=== PATIENT | female | born 1935 | race Caucasian/White ===

== ENCOUNTER 2018-10-12 08:37 | Emergency (ER) | payer MEDICARE, OTHER ==
[~2018-10-12] VITALS: Ht 170.2 cm; Wt 68.2 kg
[~2018-10-12 08:37] MED LIST: ASPIRIN EC81 MG PO; CARTIA XT180 MG/24 PO; CIPRO500 MG PO; FLAGYL500 MG PO; HYDROCHLORO25 MG/TAB PO; HYDROCHLOROT25 MG PO; ISORDIL20 MG OR; ISOSORB MONO30 MG PO; METOPROL TAR100 M1 PO; METOPROL TAR25 MG PO; PLAVIX75 MG PO; PROTONIX20 M1 PO; SIMVASTATIN40 MG PO
[2018-10-12] MEDS ORDERED: NAPROSYN500 MG PO (09:41)
[2018-10-12 10:11] VITALS: BP 143/70
== END 2018-10-12 10:11 | disposition home or self-care (01) ==
LOC: ED 08:37
PROC: 2W3QX1Z Immobilization of Right Lower Leg using Splint (ICD-10-PCS; principal; 2018-10-12)
DX: S82.831A Other fracture of upper and lower end of right fibula, initial encounter for closed fracture (principal); W10.9XXA Fall (on) (from) unspecified stairs and steps, initial encounter; X50.1XXA Overexertion from prolonged static or awkward postures, initial encounter; Y92.009 Unspecified place in unspecified non-institutional (private) residence as the place of occurrence of the external cause

== ENCOUNTER → 2018-12-10 | Outpatient (REF) | payer MEDICARE, OTHER ==
[~2018-12-10] MED LIST changes: +NAPROSYN500 MG PO
[2018-12-10 08:32] LABS: HEMATOCRIT 37.9 % (37.0-47.0); MEAN CORPUSCULAR HGB 31.6 pG CALC (26.0-32.0); MEAN CORPUSCULAR HGB CONC 32.7 g/L CALC (32.0-36.0); RED BLOOD COUNT 3.93 mill/uL (4.20-5.60); RED CELL DISTRI WIDTH 13.1 % (11.5-15.5)
[2018-12-10 08:43] LABS: HEMOGLOBIN 12.4 g/dl (12.0-16.0); MEAN CELL VOLUME 96.4 fL CALC (80.0-100.0)
[2018-12-10 08:52] LABS: ANION GAP 12 (6-22 (CALC)); BUN 16 mg/dL (8-23); BUN/CREATININE RATIO 16 (12-20 (CALC)); CALCULATED LDLCHOLESTEROL 51 mg/dL (62-129 (CALC)); CARBON DIOXIDE 30 mmol/l (22-30); CHLORIDE 103 mmol/l (95-108); CHOLESTEROL HDL RATIO 1.8 (<4.4 (CALC)); GFR 53 ML/MIN (>=60 (CALC)); GFR FOR AFR.AMER. > 60 ML/MIN (>=60 (CALC)); HDL CHOLESTEROL 84 mg/dL (>=40); MAGNESIUM 1.7 mg/dL (1.6-2.3); POTASSIUM 4.4 mmol/l (3.5-5.1); SODIUM 141 mmol/l (137-146); TOTAL CHOLESTEROL 153 mg/dl (0-199); TOTAL TRIGLYCERIDES 91 mg/dl (30-149); VLDL CHOLESTROL 18 mg/dl (0-48 (CALC))
[2018-12-10 09:24] LABS: TSH, 3RD GENERATION 1.85 uIU/mL (0.47 - 4.68)
== END | disposition home or self-care (01) ==
LOC: LAB 07:33
PROVIDERS: Nurse Practitioner Family; ATTEND Nurse Practitioner Family
DX: E78.5 Hyperlipidemia, unspecified (principal); I10 Essential (primary) hypertension; E83.42 Hypomagnesemia

== ENCOUNTER 2019-08-07 09:21 | Emergency (ER) | payer MEDICARE, OTHER ==
[~2019-08-07] VITALS: Ht 170.2 cm; Wt 70.0 kg
[2019-08-07 10:54] LABS: HEMATOCRIT 41.8 % (37.0-47.0); HEMOGLOBIN 13.6 g/dl (12.0-16.0); IMMATURE GRANULOCYTES 0.4 % (0.0-5.0); MEAN CELL VOLUME 94.1 fL CALC (80.0-100.0); MEAN CORPUSCULAR HGB 30.6 pG CALC (26.0-32.0); MEAN CORPUSCULAR HGB CONC 32.5 g/L CALC (32.0-36.0); NEUT# 3.24 thou/uL (2.00-7.15); RED BLOOD COUNT 4.44 mill/uL (4.20-5.60); RED CELL DISTRI WIDTH 12.8 % (11.5-15.5)
[2019-08-07 11:17] LABS: ANION GAP 12 (6-22 (CALC)); BUN 13 mg/dL (8-23); BUN/CREATININE RATIO 13 (12-20 (CALC)); CARBON DIOXIDE 30 mmol/l (22-30); CHLORIDE 100 mmol/l (95-108); GFR 53 ML/MIN (>=60 (CALC)); GFR FOR AFR.AMER. > 60 ML/MIN (>=60 (CALC)); POTASSIUM 4.4 mmol/l (3.5-5.1); SODIUM 138 mmol/l (137-146)
[2019-08-07 11:35] VITALS: BP 155/76
== END 2019-08-07 11:49 | disposition home or self-care (01) ==
LOC: ED 09:21
PROVIDERS: Family Medicine
DX: I10 Essential (primary) hypertension (principal); I25.2 Old myocardial infarction; Z95.5 Presence of coronary angioplasty implant and graft

== ENCOUNTER 2020-01-14 21:37 | Emergency (ER) | payer MEDICARE, OTHER ==
[2020-01-14 22:53] VITALS: BP 160/90
[2020-01-14] MEDS ORDERED: NIFEDIPINE60 MG PO (23:14)
[2020-01-14] MEDS ORDERED: LIPITOR20 MG PO (23:14)
[2020-01-14] MEDS ORDERED: DIOVAN160 MG PO (23:15)
== END 2020-01-14 23:10 | disposition home or self-care (01) ==
LOC: ED 21:37
DX: K13.0 Diseases of lips (principal); I10 Essential (primary) hypertension; I25.2 Old myocardial infarction; Z95.5 Presence of coronary angioplasty implant and graft; Z79.82 Long term (current) use of aspirin

== ENCOUNTER 2021-03-20 23:25 | Emergency (ER) | payer MEDICARE, OTHER ==
[~2021-03-20] VITALS: Ht 170.2 cm; Wt 68.0 kg
[~2021-03-20 23:25] MED LIST changes: +DIOVAN160 MG PO; +LIPITOR20 MG PO; +NIFEDIPINE60 MG PO
[2021-03-20] MEDS ORDERED: METOPROL TAR100 MG PO (23:51)
[2021-03-20] MEDS ORDERED: CLARITIN10 M1 PO (23:51)
[2021-03-20] MEDS ORDERED: TRELEGY ELLIPTA1 AER IN (23:52)
[2021-03-20] MEDS ORDERED: VITAMIN B-121000 MC2 PO (23:53)
[2021-03-20] MEDS ORDERED: FUROSEMIDE20 MG PO (23:54)
[2021-03-20 23:59] LABS: HEMATOCRIT 42.5 % (37.0-47.0); HEMOGLOBIN 13.5 g/dl (12.0-16.0); IMMATURE GRANULOCYTES 0.2 % (0.0-5.0); MEAN CELL VOLUME 95.5 fL CALC (80.0-100.0); MEAN CORPUSCULAR HGB 30.3 pG CALC (26.0-32.0); MEAN CORPUSCULAR HGB CONC 31.8 g/dL CAL (32.0-36.0); NEUT# 3.14 thou/uL (2.00-7.15); RED BLOOD COUNT 4.45 mill/uL (4.20-5.60); RED CELL DISTRI WIDTH 12.9 % (11.5-15.5)
[2021-03-21 00:17] LABS: ALBUMIN 4.3 g/dL (3.2-5.0); ALKALINE PHOSPHATASE 74 u/l (38-126); ANION GAP 11 (6-22 (CALC)); BILIRUBIN, TOTAL 0.7 mg/dL (0.0-1.4); BUN 16 mg/dL (8-23); BUN/CREATININE RATIO 17 (12-20 (CALC)); CARBON DIOXIDE 28 mmol/l (22-30); CHLORIDE 102 mmol/l (95-108); GFR 53 ML/MIN (>=60 (CALC)); GFR FOR AFR.AMER. > 60 ML/MIN (>=60 (CALC)); SGOT/AST 28 u/l (9-36); SODIUM 137 mmol/l (137-146); TOTAL PROTEIN 7.5 g/dL (6.3-8.2)
[2021-03-21 01:16] LABS: URINE BILIRUBIN - DIPSTICK NEGATIVE (NEGATIVE); URINE BLOOD DIPSTICK NEGATIVE (NEGATIVE); URINE COLOR YELLOW; URINE GLUCOSE - DIPSTICK NEGATIVE (NEGATIVE); URINE KETONE NEGATIVE (NEGATIVE); URINE LEUK ESTERASE NEGATIVE (NEGATIVE); URINE NITRITE - DIPSTICK NEGATIVE (Negative); URINE PROTEIN - DIPSTICK NEGATIVE (NEG-TRACE); URINE SPECIFIC GRAVITY <=1.005; URINE UROBILINOGEN - DIPSTICK 0.2 E.U./dL (0.2)
[2021-03-21] MEDS ORDERED: HYDROCHLOROT25 MG PO (01:35)
[2021-03-21] MEDS ORDERED: CLONIDINE0.1 MG PO (01:35)
[2021-03-21 01:44] VITALS: BP 136/61
== END 2021-03-21 01:55 | disposition home or self-care (01) ==
LOC: ED 23:25
PROVIDERS: Family Medicine
DX: I10 Essential (primary) hypertension (principal); I25.2 Old myocardial infarction; I25.10 Atherosclerotic heart disease of native coronary artery without angina pectoris; Z95.5 Presence of coronary angioplasty implant and graft

== ENCOUNTER 2023-06-22 23:03 | Emergency (ER) | payer MEDICARE, OTHER ==
[~2023-06-22] VITALS: Ht 170.2 cm; Wt 65.0 kg
[~2023-06-22 23:03] MED LIST changes: +CLARITIN10 M1 PO; +CLONIDINE0.1 MG PO; +FUROSEMIDE20 MG PO; +METOPROL TAR100 MG PO; +TRELEGY ELLIPTA1 AER IN; +VITAMIN B-121000 MC2 PO
[2023-06-22 23:12] VITALS: BP 212/102
[2023-06-22 23:15] VITALS: BP 217/96
[2023-06-22] MEDS ORDERED: DIOVAN HCT320 MG/25 PO (23:21)
[2023-06-22] MEDS ORDERED: CARVEDILOL6.25 MG PO (23:21)
[2023-06-22] MEDS ORDERED: PREMARIN0.3 MG PO (23:22)
[2023-06-22] MEDS ORDERED: CLONIDINE0.1 MG PO (23:25)
[2023-06-22 23:31] VITALS: BP 202/88
[2023-06-22 23:39] LABS: EOS% 3.9 % (0-8); HEMATOCRIT 35.8 % (37.0-47.0); HEMOGLOBIN 11.8 g/dl (12.0-16.0); IMMATURE GRANULOCYTES 0.4 % (0.0-5.0); LYMPH% 36.3 % (15-41); MEAN CELL VOLUME 95.2 fL CALC (80.0-100.0); MEAN CORPUSCULAR HGB 31.4 pG CALC (26.0-32.0); MONO% 11.9 % (2-13); NEUT# 2.59 thou/uL (2.00-7.15); NEUT% 47.5 % (42-76); RED BLOOD COUNT 3.76 mill/uL (4.20-5.60); RED CELL DISTRI WIDTH 12.5 % (11.5-15.5)
[2023-06-22 23:57] LABS: ALBUMIN 4.2 g/dL (3.2-5.0); BILIRUBIN, TOTAL 0.9 mg/dL (0.02-1.3); CREATININE 1.1 mg/dL (0.5-1.0); POTASSIUM 4.3 mmol/l (3.5-5.1); TOTAL PROTEIN 6.9 g/dL (6.3-8.2)
[2023-06-22 23:58] VITALS: BP 186/80
[2023-06-23] VITALS: BP 183/81
[2023-06-23 00:31] VITALS: BP 151/66
[2023-06-23 01:00] VITALS: BP 159/72
[2023-06-23] MEDS ORDERED: AMLODIPINE BESYL5 MG PO (01:13)
[2023-06-23 01:23] VITALS: BP 131/55
== END 2023-06-23 01:31 | disposition home or self-care (01) ==
LOC: ED 23:03
PROVIDERS: Family Medicine
DX: I10 Essential (primary) hypertension (principal); I25.10 Atherosclerotic heart disease of native coronary artery without angina pectoris; I25.2 Old myocardial infarction